=== PATIENT | female | born 1955 | race African-American/Black ===

== ENCOUNTER 2018-02-23 10:21 | Outpatient (CLI) | payer MEDICARE | END 2018-02-23 10:22 | disposition home or self-care (01) | LOC: BICMAMMO 10:21 | DX: Z12.31 Encounter for screening mammogram for malignant neoplasm of breast (principal); M81.0 Age-related osteoporosis without current pathological fracture | CPT/HCPCS: 77063; 77067; 77080 ==

== ENCOUNTER 2018-05-19 21:52 | Emergency (ER) | payer MEDICARE ==
[2018-05-20] MEDS ORDERED: Ketorolac Tromethamine 60 MG/2 ML VIAL ONE (00:30)
== END 2018-05-20 00:35 | disposition home or self-care (01) ==
LOC: ERS 21:52
DX: G89.29 Other chronic pain (principal); M54.2 Cervicalgia; M19.90 Unspecified osteoarthritis, unspecified site
CPT/HCPCS: 96372; J1885

== ENCOUNTER 2019-04-23 13:02 | Outpatient (CLI) | payer MEDICARE ==
--- NOTE | 2019-04-23 14:27 | MMO ---
Bilateral MAMMO Bilat Screen [facility]. CLINICAL HISTORY: Patient is 63 years old and is seen for screening. The patient has no family history of breast cancer. The patient has no personal history of cancer. The patient has a history of left Stereotatic Biopsy in 2000 - benign findings.. VIEWS: The views performed were: bilateral craniocaudal with tomosynthesis and bilateral mediolateral oblique with tomosynthesis. FILMS COMPARED: The present examination has been compared to prior imaging studies performed at [facility] on 06/30/2013, 07/13/2014, 07/24/2015 and 02/23/2018. MAMMOGRAM FINDINGS: Finding 1: There are stable benign appearing calcifications seen in both breasts. Finding 2: There is a stable biopsy clip seen in the left breast at 12 o'clock. There are no suspicious masses, suspicious calcifications, or new areas of architectural distortion. IMPRESSION: THERE IS NO MAMMOGRAPHIC EVIDENCE OF MALIGNANCY. A ROUTINE FOLLOW-UP MAMMOGRAM IN 1 YEAR IS RECOMMENDED. THE RESULTS OF THIS EXAM WERE SENT TO THE PATIENT. ACR BI-RADS Category 2 - Benign finding MAMMOGRAPHY NOTE: 1. A negative mammogram report should not delay a biopsy if a dominant of clinically suspicious mass is present. 2. Approximately 10% to 15% of breast cancers are not detected by mammography. 3. Adenosis and dense breasts may obscure an underlying neoplasm.
== END 2019-04-23 13:03 | disposition home or self-care (01) ==
LOC: BICMAMMO 13:02
PROVIDERS: ATTEND Family Medicine
DX: Z12.31 Encounter for screening mammogram for malignant neoplasm of breast (principal)
CPT/HCPCS: 77063; 77067

== ENCOUNTER 2021-05-09 10:20 | Outpatient (CLI) | payer MEDICARE | END 2021-05-09 10:21 | disposition home or self-care (01) | LOC: BICMAMMO 10:20 | PROVIDERS: ATTEND Family Medicine | DX: Z12.31 Encounter for screening mammogram for malignant neoplasm of breast (principal); E28.310 Symptomatic premature menopause | CPT/HCPCS: 77063; 77067; 77080 ==

== ENCOUNTER 2022-05-28 10:08 | Outpatient (CLI) | payer MEDICARE | END 2022-05-28 10:09 | disposition home or self-care (01) | LOC: BICMAMMO 10:08 | PROVIDERS: ATTEND Family Medicine | DX: Z12.31 Encounter for screening mammogram for malignant neoplasm of breast (principal); M81.0 Age-related osteoporosis without current pathological fracture; Z91.89 Other specified personal risk factors, not elsewhere classified | CPT/HCPCS: 77063; 77067; 77080 ==

== ENCOUNTER 2023-01-25 09:38 | Inpatient (IN) | payer MEDICARE, OTHER ==
[2023-01-25] MEDS ORDERED: Ketorolac Tromethamine 30 MG/ML VIAL ONE (10:58)
[2023-01-25] MEDS ORDERED: Morphine 4 MG/ML VIAL ONE ×2 (10:58)
[2023-01-25] MEDS ORDERED: Ondansetron PF 4 MG/2 ML Vial ONE (10:59)
[2023-01-25 11:16] LABS: #Basophils 0.1 thou/uL (0.0-0.2); #Eosinphils 0.1 thou/uL (0.0-0.7); #Lymphocytes 2.6 thou/uL (1.20-3.40); #Monocytes 1.1 thou/uL (0.11-0.59); %Basophils 0.4 % (0.0-1.0); %Eosinophils 0.6 % (0.0-10.0); %Lymphocytes 15.4 % (21.0-51.0); %Monocytes 6.6 % (0.0-10.0); %Neutrophils 76.9 % (42.0-75.0); Hemoglobin 14.6 g/dL (12.0-16.0); Mean Corpuscular HGB CONC 34.2 g/dL (32.0-36.0); Mean Corpuscular Hemoglobin 29.9 pg (27.0-31.0); Mean Corpuscular Volume 87.5 fl (78.0-98.0); Mean Platelet Volume 9.5 fL (7.4-10.4); Platelet Count 225 10x3/uL (130-400); RBC Distribution Width 13.2 % (11.5-14.5); Red Blood Cell (RBC) Count 4.89 mill/uL (4.20-5.40); White Blood Cell (WBC) Count 16.8 10x3/uL (4.8-10.8)
[2023-01-25 11:40] LABS: ALT (SGPT) 22 U/L (8-55); AST (SGOT) 21 U/L (5-34); Albumin 4.1 g/dL (3.4-4.8); Alkaline Phosphatase 88 U/L (40-110); Anion Gap 15 mmol/L (10-20); BUN (Urea Nitrogen) 23 mg/dL (9.8-20.1); Bilirubin, Total 0.7 mg/dL (0.2-1.2); CRP (Inflammatory) 6.46 mg/dL (= or < 0.5); Calc. Creatinine Clearance 0 mL/min (70-130); Carbon Dioxide 20 mmol/L (23-31); Chloride 109 mmol/L (98-107); Estimated GFR 68; Globulin 4.5 g/dL (2.4-3.5); Glucose 110 mg/dL (80-115); Potassium 3.6 mmol/L (3.5-5.1); Protein, Total 8.6 g/dL (5.8-8.1); Sodium 140 mmol/L (136-145)
[2023-01-25] MEDS ORDERED: Lidocaine 2% PF 5 ML VIAL ONE ×2 (12:33→12:35)
[2023-01-25 13:51] LABS: RBC Count-Automated (BF) 249468 /cu.mm; WBC/Nucleated-Auto (BF) 5911 /cu.mm
[2023-01-25 13:53] LABS: BF Color Red; Body Fluid Source Synovial Fluid; Clarity Cloudy/Turbid (Clear); Tube # SYRINGE
[2023-01-25 13:54] LABS: BF Segmented Neutrophils 83 %; Cell Count Non Hematic 13 %; Lymphocytes 4 %
[2023-01-25] MEDS ORDERED: HYDROcodone/Acetaminophen 5/325 mg Tablet PO PRN (15:09)
[2023-01-25] MEDS ORDERED: Acetaminophen 325 MG TAB PO PRN (15:09)
[2023-01-25] MEDS ORDERED: Vancomycin 1 GM in Premix Bag 1 BAG IVPB SCH (15:15)
[2023-01-25 16:48] VITALS: BMI 35.5
[2023-01-25] MEDS ORDERED: VANCOMYCIN 2 GRAM/500 ML BAG 2 GM in Premix Bag 1 BAG IVPB SCH (17:00)
[2023-01-25] MEDS: HYDROcodone/Acetaminophen 5/325 mg Tablet PO PRN (21:09)
[2023-01-25] MEDS: Cefepime 2 GM in Sodium Chloride 0.9% 100 ML IVPB SCH (21:10)
[2023-01-26] MEDS: HYDROcodone/Acetaminophen 5/325 mg Tablet PO PRN ×3 (05:50→23:56)
[2023-01-26] MEDS: Vancomycin 1 GM in Premix Bag 1 BAG IVPB SCH ×2 (05:52→18:40)
[2023-01-26 07:11] LABS: #Eosinphils 0.3 thou/uL (0.0-0.7); #Lymphocytes 2.7 thou/uL (1.20-3.40); #Monocytes 1.2 thou/uL (0.11-0.59); #Neutrophils 8.7 thou/uL (1.40-6.50); %Basophils 0.4 % (0.0-1.0); %Eosinophils 2.4 % (0.0-10.0); %Monocytes 9.2 % (0.0-10.0); Mean Corpuscular HGB CONC 33.4 g/dL (32.0-36.0); Mean Corpuscular Hemoglobin 29.5 pg (27.0-31.0); Mean Corpuscular Volume 88.3 fl (78.0-98.0); Mean Platelet Volume 9.1 fL (7.4-10.4); Platelet Count 167 10x3/uL (130-400); RBC Distribution Width 12.9 % (11.5-14.5); Red Blood Cell (RBC) Count 4.06 mill/uL (4.20-5.40)
[2023-01-26 07:29] LABS: Anion Gap 12 mmol/L (10-20); BUN (Urea Nitrogen) 27 mg/dL (9.8-20.1); Calc. Creatinine Clearance 80 mL/min (70-130); Calcium 8.9 mg/dL (7.8-10.44); Carbon Dioxide 18 mmol/L (23-31); Chloride 109 mmol/L (98-107); Estimated GFR 57; Glucose 115 mg/dL (80-115); Potassium 3.4 mmol/L (3.5-5.1); Sodium 136 mmol/L (136-145)
[2023-01-26] MEDS: Cefepime 2 GM in Sodium Chloride 0.9% 100 ML IVPB SCH (08:56)
[2023-01-26] MEDS ORDERED: Ondansetron PF 4 MG/2 ML Vial ONE ×2 (09:53→11:11)
[2023-01-26] MEDS ORDERED: Midazolam HCl 2 mg/2 ml Vial ONE (10:39)
[2023-01-26] MEDS ORDERED: Fentanyl 250 MCG/5 ML VIAL ONE (10:39)
[2023-01-26] MEDS ORDERED: SUGAMMADEX SODIUM 200 MG/2 ML VIAL ONE (10:39)
[2023-01-26] MEDS ORDERED: PROPOFOL 200 MG/20 ML VIAL ONE (11:11)
[2023-01-26] MEDS ORDERED: Glycopyrrolate 0.2 MG/ML 5 ML SYRINGE ONE (11:11)
[2023-01-26] MEDS ORDERED: Lidocaine 1% PF 5 ML VIAL ONE (11:11)
[2023-01-26] MEDS ORDERED: Rocuronium Bromide 10 MG/ML (10ML VIAL) ONE (11:11)
[2023-01-26] MEDS ORDERED: Dexamethasone 20 MG/5 ML VIAL ONE (11:11)
[2023-01-26] MEDS ORDERED: NEOSTIGMINE 3 MG/3 ML SYR 3 MG/3 ML SYRINGE ONE (11:11)
[2023-01-26] MEDS ORDERED: Bupivacaine HCl 0.5%/Epinephrine 1:200,000/PF 30 ml Vial ONE (11:50)
[2023-01-26] MEDS ORDERED: Morphine 2 MG/ML VIAL SLOW IVP PRN (12:19)
[2023-01-26] MEDS ORDERED: Morphine 4 MG/ML VIAL SLOW IVP PRN (12:19)
[2023-01-26] MEDS ORDERED: Promethazine HCl 25 MG/ML VIAL ONE (12:21)
[2023-01-26] MEDS ORDERED: HYDROmorphone 2 MG/ML VIAL SLOW IVP PRN (12:29)
[2023-01-26] MEDS ORDERED: Promethazine HCl 25 MG/ML VIAL IM PRN (12:29)
[2023-01-26] MEDS ORDERED: Ondansetron HCl/PF 4 MG/2 ML Vial IVP PRN (12:29)
[2023-01-26] MEDS ORDERED: PACU-Morphine 4MG/ML VIAL SLOW IVP PRN (12:29)
[2023-01-26] MEDS ORDERED: Communication Order-Pharmacy FS SCH (12:30)
[2023-01-26] MEDS ORDERED: Electrolyte Replacement Protocol FS SCH (16:30)
[2023-01-26] MEDS ORDERED: TETANUS, DIPHTHERIA TOX,ADULT (TDVAX) 0.5 ML VIAL IM ONE (18:00)
[2023-01-26] MEDS: Cefepime 1 GM in Sodium Chloride 0.9% 100 ML IVPB SCH (21:49)
[2023-01-27] MEDS: HYDROcodone/Acetaminophen 5/325 mg Tablet PO PRN ×3 (04:14→18:36)
[2023-01-27 06:14] LABS: #Lymphocytes 1.4 thou/uL (1.20-3.40); #Monocytes 0.7 thou/uL (0.11-0.59); #Neutrophils 14.2 thou/uL (1.40-6.50); %Basophils 0.2 % (0.0-1.0); %Eosinophils 0.1 % (0.0-10.0); %Lymphocytes 8.8 % (21.0-51.0); %Monocytes 4.2 % (0.0-10.0); %Neutrophils 86.7 % (42.0-75.0); Hemoglobin 11.4 g/dL (12.0-16.0); Mean Corpuscular HGB CONC 33.3 g/dL (32.0-36.0); Mean Corpuscular Hemoglobin 29.1 pg (27.0-31.0); Mean Corpuscular Volume 87.4 fl (78.0-98.0); Mean Platelet Volume 9.4 fL (7.4-10.4); Platelet Count 183 10x3/uL (130-400); RBC Distribution Width 12.6 % (11.5-14.5); Red Blood Cell (RBC) Count 3.91 mill/uL (4.20-5.40); White Blood Cell (WBC) Count 16.4 10x3/uL (4.8-10.8)
[2023-01-27 06:29] LABS: Hemoglobin A1c 4.9 % (4.0-6.0)
[2023-01-27 06:32] LABS: Vancomycin, Trough 23.6 ug/mL
[2023-01-27] MEDS: Vancomycin 1 GM in Premix Bag 1 BAG IVPB SCH (06:40)
[2023-01-27 06:42] LABS: ALT (SGPT) 18 U/L (8-55); AST (SGOT) 18 U/L (5-34); Albumin 2.9 g/dL (3.4-4.8); Alkaline Phosphatase 63 U/L (40-110); Anion Gap 13 mmol/L (10-20); BUN (Urea Nitrogen) 36 mg/dL (9.8-20.1); Bilirubin, Direct 0.1 mg/dL (0.1-0.3); Bilirubin, Total 0.2 mg/dL (0.2-1.2); Calc. Creatinine Clearance 72 mL/min (70-130); Calcium 8.9 mg/dL (7.8-10.44); Carbon Dioxide 17 mmol/L (23-31); Chloride 111 mmol/L (98-107); Estimated GFR 50; Glucose 146 mg/dL (80-115); Magnesium 1.6 mg/dL (1.6-2.6); Potassium 3.9 mmol/L (3.5-5.1); Protein, Total 6.3 g/dL (5.8-8.1); Sodium 137 mmol/L (136-145)
[2023-01-27] MEDS ORDERED: Magnesium 2 GM/50 ML(in water) 2 GM in Premix Bag 1 BAG IVPB SCH (08:00)
[2023-01-27] MEDS: Cefepime 1 GM in Sodium Chloride 0.9% 100 ML IVPB SCH ×2 (08:26→20:57)
[2023-01-27] MEDS ORDERED: Valsartan 80 MG TAB PO SCH (09:00)
[2023-01-27] MEDS ORDERED: Hydrochlorothiazide 25 MG TAB PO SCH (09:00)
[2023-01-27] MEDS: VANCOMYCIN 1.75 GM/500 ML BAG 1.75 GM in Premix Bag 1 BAG IVPB SCH (10:26)
[2023-01-27] MEDS ORDERED: Polyethylene Glycol 3350 17 GM Packet PO PRN ×2 (13:57→14:15)
[2023-01-27] MEDS: Senokot S 8.6-50 MG TAB PO SCH (20:57)
[2023-01-28 06:29] LABS: #Basophils 0.1 thou/uL (0.0-0.2); #Eosinphils 0.2 thou/uL (0.0-0.7); #Lymphocytes 3.8 thou/uL (1.20-3.40); #Neutrophils 11.9 thou/uL (1.40-6.50); %Basophils 0.5 % (0.0-1.0); %Lymphocytes 22.4 % (21.0-51.0); %Monocytes 6.1 % (0.0-10.0); Hemoglobin 11.9 g/dL (12.0-16.0); Mean Corpuscular HGB CONC 33.4 g/dL (32.0-36.0); Mean Corpuscular Hemoglobin 29.3 pg (27.0-31.0); Mean Corpuscular Volume 87.6 fl (78.0-98.0); Mean Platelet Volume 9.6 fL (7.4-10.4); Platelet Count 236 10x3/uL (130-400); RBC Distribution Width 12.8 % (11.5-14.5); Red Blood Cell (RBC) Count 4.05 mill/uL (4.20-5.40)
[2023-01-28 06:58] LABS: Anion Gap 13 mmol/L (10-20); BUN (Urea Nitrogen) 33 mg/dL (9.8-20.1); Calc. Creatinine Clearance 91 mL/min (70-130); Calcium 9.2 mg/dL (7.8-10.44); Carbon Dioxide 18 mmol/L (23-31); Chloride 113 mmol/L (98-107); Estimated GFR 67; Glucose 84 mg/dL (80-115); Magnesium 2.2 mg/dL (1.6-2.6); Potassium 3.9 mmol/L (3.5-5.1); Sodium 140 mmol/L (136-145)
[2023-01-28] MEDS: Cefepime 1 GM in Sodium Chloride 0.9% 100 ML IVPB SCH ×2 (08:19→20:10)
[2023-01-28] MEDS: Senokot S 8.6-50 MG TAB PO SCH ×2 (08:19→20:14)
[2023-01-28] MEDS ORDERED: Valsartan 80 MG TAB PO SCH (09:00)
[2023-01-28] MEDS: VANCOMYCIN 1.75 GM/500 ML BAG 1.75 GM in Premix Bag 1 BAG IVPB SCH (12:07)
[2023-01-28] MEDS: HYDROcodone/Acetaminophen 5/325 mg Tablet PO PRN ×2 (14:29→20:16)
[2023-01-29 06:07] LABS: #Basophils 0.1 thou/uL (0.0-0.2); #Eosinphils 0.4 thou/uL (0.0-0.7); #Lymphocytes 3.7 thou/uL (1.20-3.40); #Monocytes 0.8 thou/uL (0.11-0.59); #Neutrophils 5.7 thou/uL (1.40-6.50); %Basophils 0.7 % (0.0-1.0); %Eosinophils 3.7 % (0.0-10.0); %Lymphocytes 34.5 % (21.0-51.0); %Monocytes 7.4 % (0.0-10.0); %Neutrophils 53.7 % (42.0-75.0); Hemoglobin 11.6 g/dL (12.0-16.0); Mean Corpuscular HGB CONC 34.3 g/dL (32.0-36.0); Mean Corpuscular Hemoglobin 30.1 pg (27.0-31.0); Mean Corpuscular Volume 87.8 fl (78.0-98.0); Mean Platelet Volume 9.3 fL (7.4-10.4); Platelet Count 207 10x3/uL (130-400); RBC Distribution Width 12.8 % (11.5-14.5); Red Blood Cell (RBC) Count 3.86 mill/uL (4.20-5.40); White Blood Cell (WBC) Count 10.7 10x3/uL (4.8-10.8)
[2023-01-29 06:31] LABS: Anion Gap 11 mmol/L (10-20); BUN (Urea Nitrogen) 30 mg/dL (9.8-20.1); Calc. Creatinine Clearance 105 mL/min (70-130); Calcium 8.8 mg/dL (7.8-10.44); Carbon Dioxide 20 mmol/L (23-31); Chloride 113 mmol/L (98-107); Estimated GFR 79; Glucose 84 mg/dL (80-115); Magnesium 1.7 mg/dL (1.6-2.6); Potassium 4.1 mmol/L (3.5-5.1); Sodium 140 mmol/L (136-145)
[2023-01-29 06:32] LABS: CRP (Inflammatory) 2.78 mg/dL (= or < 0.5); Uric Acid 7.4 mg/dL (2.6-6.0)
[2023-01-29] MEDS: Senokot S 8.6-50 MG TAB PO SCH ×2 (08:23→20:29)
[2023-01-29 08:28] LABS: Vancomycin, Trough 26.3 ug/mL
[2023-01-29] MEDS ORDERED: Cefepime 2 GM in Sodium Chloride 0.9% 100 ML IVPB SCH (09:00)
[2023-01-29] MEDS ORDERED: Magnesium 2 GM/50 ML(in water) 2 GM in Premix Bag 1 BAG IVPB SCH (10:30)
[2023-01-29] MEDS ORDERED: Saccharomyces boulardii 250 MG CAP PO SCH (14:00)
[2023-01-29] MEDS: Valsartan 80 MG TAB PO SCH (20:29)
[2023-01-30 05:06] VITALS: TEMP 97.9
[2023-01-30 05:47] LABS: #Basophils 0.1 thou/uL (0.0-0.2); #Eosinphils 0.5 thou/uL (0.0-0.7); #Lymphocytes 3.3 thou/uL (1.20-3.40); #Monocytes 0.9 thou/uL (0.11-0.59); #Neutrophils 7.6 thou/uL (1.40-6.50); %Basophils 0.5 % (0.0-1.0); %Eosinophils 3.9 % (0.0-10.0); %Lymphocytes 26.8 % (21.0-51.0); %Monocytes 7.3 % (0.0-10.0); %Neutrophils 61.5 % (42.0-75.0); Hemoglobin 11.3 g/dL (12.0-16.0); Mean Corpuscular HGB CONC 33.1 g/dL (32.0-36.0); Mean Corpuscular Volume 87.6 fl (78.0-98.0); Mean Platelet Volume 9.1 fL (7.4-10.4); Platelet Count 214 10x3/uL (130-400); RBC Distribution Width 12.9 % (11.5-14.5); Red Blood Cell (RBC) Count 3.89 mill/uL (4.20-5.40); White Blood Cell (WBC) Count 12.4 10x3/uL (4.8-10.8)
[2023-01-30 06:03] LABS: Anion Gap 9 mmol/L (10-20); BUN (Urea Nitrogen) 29 mg/dL (9.8-20.1); Calc. Creatinine Clearance 106 mL/min (70-130); Carbon Dioxide 21 mmol/L (23-31); Chloride 111 mmol/L (98-107); Estimated GFR 80; Glucose 94 mg/dL (80-115); Magnesium 1.9 mg/dL (1.6-2.6); Sodium 137 mmol/L (136-145)
[2023-01-30] MEDS ORDERED: Magnesium 2 GM/50 ML(in water) 2 GM in Premix Bag 1 BAG IVPB SCH (08:00)
[2023-01-30] MEDS: Valsartan 80 MG TAB PO SCH (08:47)
[2023-01-30] MEDS: Senokot S 8.6-50 MG TAB PO SCH (08:49)
[2023-01-30] MEDS ORDERED: VANCOMYCIN 1.25 GM/250 ML BAG 1.25 GM in Premix Bag 1 BAG IVPB SCH (09:00)
[2023-01-30] MEDS ORDERED: Magnesium Oxide 400 MG TAB PO SCH (09:00)
[2023-01-30 09:18] VITALS: BP 139/86
[2023-01-30] MEDS ORDERED: predniSONE 20 MG TAB PO SCH ×2 (09:51→10:00)
[2023-01-31] MEDS ORDERED: predniSONE 20 MG TAB PO SCH (08:00)
== END 2023-01-30 11:34 | disposition home or self-care (01) | DRG 554 ==
LOC: ERS 09:38 → SURG A 12:29 → OBSVTOIN 01-26 16:24
PROVIDERS: ADMIT Internal Medicine; ATTEND Internal Medicine
PROC: 0R9K3ZZ Drainage of Left Shoulder Joint, Percutaneous Approach (ICD-10-PCS; principal; 2023-01-26)
DX: M19.012 Primary osteoarthritis, left shoulder (principal); R65.10 Systemic inflammatory response syndrome (SIRS) of non-infectious origin without acute organ dysfunction; G89.29 Other chronic pain; E87.6 Hypokalemia; N18.2 Chronic kidney disease, stage 2 (mild); I12.9 Hypertensive chronic kidney disease with stage 1 through stage 4 chronic kidney disease, or unspecified chronic kidney disease; M54.50 Low back pain, unspecified; Z88.0 Allergy status to penicillin; Z79.899 Other long term (current) drug therapy; Z98.51 Tubal ligation status; Z90.710 Acquired absence of both cervix and uterus; Z90.89 Acquired absence of other organs; Z82.49 Family history of ischemic heart disease and other diseases of the circulatory system
CPT/HCPCS: 20610; 36415; 80048; 80053; 80076; 80202; 83036; 83605; 83735; 84443; 84550; 85025; 85060; 85652; 86140; 87040; 87070; 87149; 87205; 89051; 89060; 93005; 96374; 96375; 96376; G0378; J0692; J1100; J1885; J2001; J2250; J2270; J2405; J2550; J2704; J3010; J3370; J3370-JW; J3475; J3490; J7512